=== PATIENT | male | born 1970 | race American Indian/Alaskan Native ===

== ENCOUNTER → 2024-09-15 | Outpatient (CLI) | payer OTHER, MEDICAID, SELFPAY ==
--- NOTE | 2024-09-15 | XR_ITS ---
Examination: Left knee single view TECHNIQUE: AP standing left knee single view Exam date and time: September 15, 2024 0755 hours INDICATIONS: Preop knee surgery September 28, 2024 FINDINGS: Advanced narrowing medial joint space left knee Significant osteoarthritis lateral joint space Prominent osteopenia No fracture IMPRESSION: Advanced narrowing medial joint space left knee Significant osteoarthritis lateral joint space left knee
== END | disposition home or self-care (01) ==
PROVIDERS: Referring Provider Orthopaedic Surgery; Visit Provider Orthopaedic Surgery
DX: M17.12 Unilateral primary osteoarthritis, left knee (principal); M25.862 Other specified joint disorders, left knee
CPT/HCPCS: 73560

== ENCOUNTER 2024-09-29 18:25 | Inpatient (IN) | payer OTHER, MEDICAID, SELFPAY ==
--- NOTE | 2024-09-28 09:57 | EKG_ITS ---
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
[2024-09-28 10:06] VITALS: BMI 37.2
[2024-09-28 10:57] LABS: Basophils # (Auto) 0.1 Thou/mm3 (0.0-0.2); Basophils % (Auto) 1 % (0-2.5); Eosinophils # (Auto) 0.1 Thou/mm3 (0.0-0.5); Eosinophils % (Auto) 2 % (0-10); Hematocrit 45.3 % (41.0-53.0); Hemoglobin 15.9 g/dL (13.5-16.0); Immature Granulocytes % (Auto) 0 % (0-0); Immature Granulocytes Auto 0.01 Thou/mm3 (0.00-0.00); Lymphocytes # (Auto) 2.4 Thou/mm3 (1.0-4.8); Lymphocytes % (Auto) 37 % (10-50); Mean Corpuscular HGB Conc 35.1 g/dl (31.0-37.0); Mean Corpuscular Hemoglobin 31.4 pg (25.0-35.0); Mean Corpuscular Volume 89 fL (80-100); Monocytes # (Auto) 0.5 Thou/mm3 (0.0-0.8); Monocytes % (Auto) 7 % (0-12); Neutrophils # (Auto) 3.5 Thou/mm3 (1.8-7.7); Neutrophils % (Auto) 53 % (37-80); Nucleated Red Blood Cell % 0 /100 WBC (0); Platelet Count 262 Thou/mm3 (140-440); RDW Standard Deviation 39.7 fL (35.1-43.9); Red Blood Count 5.07 Miln/mm3 (4.50-5.90); White Blood Count 6.6 Thou/mm3 (3.8-10.6)
[2024-09-28 11:14] LABS: Alanine Aminotransferase 20 U/L (10-49); Albumin, Serum 4.6 gm/dL (3.5-5.0); Albumin/Globulin Ratio 1.4 (1.2-2.2); Alkaline Phosphatase 104 U/L (46-116); Anion Gap 7 (7-16); Aspartate Amino Transferase 28 U/L (0-34); BUN/Creatinine Ratio 15 Ratio (12-20); Bilirubin,Total 1.2 mg/dL (0.3-1.2); Blood Urea Nitrogen 16 mg/dL (9-23); Calcium 9.4 mg/dL (8.3-10.6); Calcium (Corrected) 9.4 mg/dL (8.5-10.1); Carbon Dioxide 27.8 mMol/L (20.0-31.0); Chloride 103 mMol/L (98-107); Creatinine (Component) 1.1 mg/dL (0.6-1.3); Estimated Creatinine Clearance 96.9 mL/min (>60); Globulin 3.2 gm/dL (2.3-3.5); Glucose 90 mg/dL (74-106); Osmolality,Calculated 276 (275-295); Potassium 4.3 mMol/L (3.4-5.1); Sodium 138 mMol/L (136-145); Total Protein 7.8 gm/dL (5.7-8.2); eGFR > 60 See Note
[2024-09-28 11:15] LABS: Partial Thromboplastin Time 26.6 Seconds (22.0-36.0); Prothrombin Time 10.7 Seconds (9.0-12.2)
--- NOTE | 2024-09-28 14:21 | SUR.PREOP ---
Cardiac records and history reviewed with Dr Barksdale.
[2024-09-29] VITALS (25 sets, daily range): BP systolic 101–149; BP diastolic 70–101; PULSE 67–96; RESP 12–20; TEMP 36.1–37.2; O2SAT 94–100; BMI 37.2
[2024-09-29] MEDS: RINGERS LACTATED 1000 ML 1,000 ML 20 ML IV (06:46)
--- NOTE | 2024-09-29 07:28 | CHAP ---
Patient expressed gratitude for prayer before their procedure.
--- NOTE | 2024-09-29 10:42 | XR_ITS ---
Examination: Knee, left , 3 views Technique: Knee AP, lateral, oblique 3 views Date and time of exam: September 29, 2024 1137 hours INDICATIONS: Postop knee arthroplasty today. FINDINGS: Mild osteopenia Total left knee arthroplasty. Satisfactory alignment. No fracture IMPRESSION: Total left knee arthroplasty with satisfactory alignment
--- NOTE | 2024-09-29 10:43 | PD.SUROPNT ---
Date of Procedure 09/29/24 Pre Op Diagnosis Severe DJD left knee joint Post Op Diagnosis Same Procedure Left total knee replacement Renee persona implant. Femur size 10 narrow Tibial baseplate size E Polyethylene 11 mm Patella size 29 mm Findings Patient has severe osteoarthritic changes. The articular golf layers were absent on the medial compartment. There is significant osteophytes present. There is genu varum deformity as well. Procedure Description The patient was given a [general knee block was also given.] anesthesia. Once satisfactory anesthesia was achieved a tourniquet was placed on upper thigh. Intravenous antibiotics was given at the time of anesthesia. The patient was thoroughly prepped and draped. After using Esmarch the tourniquet pressure was raised to 350 mmHg. A skin incision was made 2 inches proximal to the upper pole of patella going as far down as up to the medial aspect of the tibial tuberosity. The skin was raised as a flap on the site. The bleeding vessels were electrocoagulated as and when encountered. The quadriceps tendon, medial border of the patella and the patellar tendon along the medial aspect of the tibial tuberosity was incised and reflected. The patellar tendon was reflected as much as needed to jeffrey the patella. The soft tissue from the upper medial border of the tibia was reflected to correct her genu varum deformity. The knee joint was flexed. The anterior cruciate ligament, medial and lateral meniscus were excised. Next para drill hole was made to the inferior surface of the femur. Following that a swab was placed. A 4?? of abduction was already put into it. Following that a cutting block for the inferior cut of the femur was placed and nicely secured with the pins. The Sward was removed. The inferior cut of the femur was made and after that the cutting block was removed. Following that a sizer was placed. A decision was made to use size [10] femur implant. 2 drill holes each in 3?? of external rotation were made. The sizer was removed. Size [10] cutting block was placed. Following that anterior, posterior, anterior chamfer and posterior chamfer cuts were made. The cutting block was removed. The knee joint was extended and a 10 mm trial plastic was removed and the intended level of the tibial cut was marked. The knee joint was flexed. With the help of double-pronged the tibia was displaced anteriorly. An extramedullary jig for the cutting block placement of the tibia was placed. The mechanical axis of the zig was parallel to the mechanical axis of the tibia. Following that the tibial cutting block was placed at the desired level and was secured nicely with the help of pins. Following that the tibial cut was made. In this case was posterior cruciate ligament was saved. The cutting block was removed. The spacer was placed and a decision was made to use size [11] polyethylene. The sizing of the tibial baseplate was done and the decision was made to use size [E] tibial baseplate. Following that size [10] trial femur implant was placed in lateralized position and size [E] tibial tibial baseplate along with size [11] plastic was placed in knee joint was flexed and extended quite a few times and tibial baseplate was allowed to sit wherever it wanted to. The markings were made for the tibial baseplate. 2 drill holes were made for the inferior surface of the femur trial implant. The trial implant was removed and tibial baseplate was placed again with the help of pins. The collar was placed and superior hole was drilled. Following that a fin cut was made. The patella was reamed with [29] mm diameter reamer. [12] mm thickness was left. A collar was placed and 3 drill holes were made. All the trial implant was placed and patellar tracking was checked and found to be good. The wound was irrigated with antibiotic solution every 4-5 minutes. Now the power lavage antibiotic solution was used. The knee joint was flexed. The bone were made dry. The cement was mixed. With the help of cement the tibial baseplate was mounted. The excess cement was removed. The femur implant was placed and trial plastic was placed and knee joint was extended. Patella was also mounted with the help of cementing. Excess cement was removed. Osteophytes from the patella was removed at this time. Once the cement was set the tourniquet pressure was released. The bleeding vessels were electrocoagulated. The trial plastic was removed and 11 mm ultra high molecular weight polyethylene was placed. Closure The quadriceps tendon, medial border of the patella and patellar tendon was closed with the help of 1-0 strata fix in continuous fashion. The subcutaneous tissue was closed with 2-0 Vicryl's strata fix in continuous fashion. Continue subcu cuticular stitches was done The wound was cleaned with hydrogen proximal solution and a sterile dressing was applied. Patient tolerated procedure very well. Estimated blood loss [50] mL. Prognosis in this case is good. This was taken to the recovery room in good condition. Anesthesia GETA and other Pathology / specimen None Estimated Blood Loss 50 Surgeon Rayray Quan MD Surgical Staff Operation Date: 09/29/24 07:30 Case Staff Anesthesiologist: Colby Barksdale RNmissing persons investigator: Shital Kirkpatrick
--- NOTE | 2024-09-29 10:50 | SUR.PHASEI ---
1050 Patient arrived to recovery resting comfortably in bed, on oxygen 6L via oxy mask, breathing unlabored, vital signs stable, denies pain, dressing intact to left leg; sutures, prineo, fluffs, bias roll, silk tape, no bleeding noted, bilateral dorsalis pedis pulses present when palpated, patient has good circulation to left lower extremity; skin color is normal for patient and warm to touch, report received from Reji LOPEZ and Dr. Barksdale
[2024-09-29] MEDS: MEPERIDINE INJ 50 MG/ML VIAL 12.5 MG IV (11:02)
--- NOTE | 2024-09-29 11:15 | SUR.PHASEI ---
1058 Patient shivering, warming measures in place, will medicate patient per anesthesia order for the shivering 1102 Patient medicated per MD order for shivering 1115 Medication effective shivering ceased, will monitor patient
--- NOTE | 2024-09-29 11:30 | SUR.PHASEII ---
1130 patients at bedside with patient
--- NOTE | 2024-09-29 11:44 | SUR.PHASEII ---
1144 XRAY complete per MD order
--- NOTE | 2024-09-29 11:53 | SUR.PHASEII ---
patient sitting up in bed drinking tea, has lunch tray
--- NOTE | 2024-09-29 12:20 | SUR.PHASEII ---
report received from Mary Yoo Rn. pt asleep but responds to voice, breathing unlabored on room air. v/s stable.
--- NOTE | 2024-09-29 12:20 | SUR.PHASEII ---
1220 Report given to Janusz LOPEZ
--- NOTE | 2024-09-29 12:55 | SUR.PHASEII ---
1255 Report received from Janusz LOPEZ
--- NOTE | 2024-09-29 13:04 | SUR.PHASEII ---
1304 patient sleeping comfortably in bed, oxygen applied as patient resting comfortably in bed
--- NOTE | 2024-09-29 15:41 | PD.ANESPROG ---
Documentation for date of: 09/29/24 ANESTHESIA NOTE: Patient had GETA and L femoral nerve block for L TKA this morning. He did well intra-op. He has h/o A fib, and takes Eliquis. Will defer further management to primary/surgeon team; recommend resuming his beta lauren and anticoagulation post op unless contraindicated. Colby Barksdale MD Anesthesia Progress Note Progress Note Most recent Vital Signs: Last Vital Signs Temp 98.5 F 09/29/24 11:20 Pulse 93 09/29/24 12:50 Resp 20 09/29/24 12:50 BP 108/80 09/29/24 12:50 Pulse Ox 95 09/29/24 12:50 O2 Flow Rate 3 09/29/24 11:20
[2024-09-29] MEDS: ceFAZolin/D5W 1 GM IVPB 1 GM/50 ML BAG IV ×2 (16:47→23:34)
--- NOTE | 2024-09-29 17:50 | SUR.PHASEII ---
patient sitting up eating dinner, at bedside
--- NOTE | 2024-09-29 18:10 | SUR.PHASEII ---
1807 Report given to Bushra LOPEZ, patient meets discharge criteria from recovery, awake and alert, breathing unlabored, vital signs stabled, denies pain, dressing intact; no bleeding noted, denies nausea, patient at bedside with patient 181 Patient transported via bed to room 379 without incident, Bushra LOPEZ promptly in patients room, patient awake and sitting up in bed with call light in reach when this race and sports book writer left patients room
--- NOTE | 2024-09-29 18:36 | PC.NURSE ---
Pt. received on Nurse Mary schuster the report prior arrival, PT. on room air 97%, not complaining of pain at this moment, dressing site dry, clean and intact. sensation present in all extremety. Girlfriend on bedside. Has a dinner in OR . Will make pt. comfortable and continue monitor.
[2024-09-29] MEDS: MORPHINE SULF INJ 10 MG/ML VIAL 4 MG IV (21:32)
[2024-09-30] VITALS (8 sets, daily range): BP systolic 103–152; BP diastolic 73–109; PULSE 70–123; RESP 17–93; TEMP 36.9–37.7; O2SAT 93–98
[2024-09-30 05:28] LABS: Basophils % (Auto) 0 % (0-2.5); Eosinophils % (Auto) 0 % (0-10); Hematocrit 40.5 % (41.0-53.0); Hemoglobin 14.1 g/dL (13.5-16.0); Immature Granulocytes % (Auto) 0 % (0-0); Immature Granulocytes Auto 0.06 Thou/mm3 (0.00-0.00); Lymphocytes # (Auto) 1.5 Thou/mm3 (1.0-4.8); Lymphocytes % (Auto) 10 % (10-50); Mean Corpuscular HGB Conc 34.8 g/dl (31.0-37.0); Mean Corpuscular Volume 89 fL (80-100); Monocytes # (Auto) 1.2 Thou/mm3 (0.0-0.8); Monocytes % (Auto) 8 % (0-12); Neutrophils # (Auto) 11.6 Thou/mm3 (1.8-7.7); Neutrophils % (Auto) 81 % (37-80); Nucleated Red Blood Cell % 0 /100 WBC (0); Platelet Count 221 Thou/mm3 (140-440); RDW Standard Deviation 39.8 fL (35.1-43.9); Red Blood Count 4.55 Miln/mm3 (4.50-5.90); White Blood Count 14.4 Thou/mm3 (3.8-10.6)
[2024-09-30] MEDS: MORPHINE SULF INJ 10 MG/ML VIAL 4 MG IV ×4 (07:59→23:56)
--- NOTE | 2024-09-30 19:42 | PD.RESCONSUL ---
HPI Data of Consult Requesting Physician: Rayray Quan MD Admitting Provider: Rayray Quan MD Attending Provider: Rayray Quan MD Primary Care Provider: Viral Cain PA-C Consult Narrative History of present illness: Patient is a 54-year-old male with past medical history of afib on Eliquis, hypertension, and hyperthyroidism who underwent left total knee replacement with Dr. Belcher on 09/29/2024. Patient is post-op Day 1. Patient reports 8/10 pain in the left knee. Otherwise denies chest pain, palpitations, shortness of breath, nausea, vomiting, abdominal pain, or diarrhea. Patient takes 3 home medications, verified at bedside with medication bottles: Eliquis 5 mg BID, metoprolol succinate 50 mg qday, and methimazole 20 mg qday. Hospitalist team was consulted for management of chronic conditions and resuming of home medications. Review of Systems Review of systems otherwise negative except what is mentioned above. cc:: cc: Rayray Quan MD Past Medical History Past Medical History Comments PMH COMMENT: Past Medical History: Afib on Eliquis, hypertension, and hyperthyroidism Family History: Diabetes in grandmother Surgical History: Left total knee replacement 09/29/2024, appendectomy Social History: Denies history of smoking, past alcohol use quit 8 years ago, denies recreational drug use, quit marijuana 2 years ago Current Medications: Eliquis 5 mg BID, metoprolol succinate 50 mg qday, and methimazole 20 mg qday (Source: Patient medication bottles) Allergies: No known drug allergies Exam Vital Signs Temp Pulse Resp BP Pulse Ox O2 Del Method O2 Flow Rate 99.8 F 70 17 103/79 95 Room Air 3 09/30/24 16:00 09/30/24 16:00 09/30/24 16:09/30/24 16:09/30/24 16:09/30/24 16:09/29/24 14:50 Narrative Exam Physical Exam General: Awake and in no acute distress. Conversational and non-toxic appearing. HEENT: Normocephalic, atraumatic, mucous membranes moist. Heart: Irregular rate and rhythm, no murmurs. Lungs: Clear to auscultation with no wheezing or crackles. Abdomen: Soft, nondistended, nontender, positive bowel sounds. ?No guarding or rebound tenderness. Neurologic: Alert and oriented x3, no gross neurological deficit, and patient able to move all 4 extremities. Extremities: Raised bilateral lower extremities, no edema. Left knee wrapped with dressings. Skin: No rash or ecchymoses. Results Labs 09/30/24 04:28 09/28/24 10:27 Labs: Short CBC 09/30/24 Range/Units 04:28 WBC 14.4 H D (3.8-10.6) Thou/mm3 Hgb 14.1 (13.5-16.0) g/dL Hct 40.5 L (41.0-53.0) % Plt Count 221 D (140-440) Thou/mm3 Quality Measures Quality Measures VTE prophylaxis Medications Home Medications and Allergies Home Medications ?Medication ?Instructions ?Recorded ?Confirmed ?Type apixaban 5 mg tablet (Eliquis) 5 mg PO BID 01/13/24 09/28/24 History methimazole 10 mg tablet 20 mg PO DAILY 01/13/24 09/29/24 History metoprolol succinate 50 mg 50 mg PO QDAY 09/28/24 09/29/24 History tablet,extended release 24 hr Allergies Allergy/AdvReac Type Severity Reaction Status Date / Time No Known Allergies Allergy Verified 09/29/24 06:28 Visit Medications Aspirin (Aspirin Ec 81 Mg Tabec) 81 mg PO BID DENZEL Stop: 10/30/24 20:59 Meperidine HCl (Meperidine Inj 50 Mg/Ml Vial) 12.5 mg IV Q5M PRN PRN Reason: SHIVERING Stop: 10/04/24 10:09 Last Admin: 09/29/24 11:02 Dose: 12.5 mg Metoprolol Tartrate (Metoprolol Tartrate Inj 1 Mg/Ml Amp 5 Ml) 1 mg IVP Q5MIN PRN PRN Reason: TACHYCARDIA Morphine Sulfate (Morphine Sulf Inj 10 Mg/Ml Vial) 4 mg IV Q4HR PRN PRN Reason: PAIN Stop: 10/04/24 18:24 Last Admin: 09/30/24 14:51 Dose: 4 mg Ondansetron HCl (Ondansetron Inj 2 Mg/Ml Inj 2 Ml) 4 mg IV Q6HR PRN PRN Reason: NAUSEA OR VOMITING Stop: 10/29/24 18:24 Discontinued Medications Fentanyl Citrate (Fentanyl Cit Inj 50 Mcg/Ml Amp 2ml) 50 mcg IV Q5MIN PRN PRN Reason: PAIN SCALE 4-10(Mod-Sev Stop: 09/29/24 12:11 Hydralazine HCl (Hydralazine Inj 20 Mg/Ml Vial) 5 mg IV Q20MIN PRN PRN Reason: SEE COMMENTS Stop: 09/29/24 12:11 Hydromorphone HCl (Hydromorphone Inj 2 Mg/Ml Vial) 0.5 mg IV Q10MIN PRN PRN Reason: PAIN SCALE 4-10(Mod-Sev Stop: 09/29/24 12:11 Cefazolin Sodium (Ancef 2gm Ivpb) 2 gm in 100 mls @ 100 mls/hr IV X1 ONE Stop: 09/29/24 06:59 Last Admin: 09/29/24 16:50 Dose: Not Given Lactated Ringer's (Lactated Ringers) 1,000 mls @ 20 mls/hr IV .Q24H ONE Stop: 09/30/24 05:59 Last Admin: 09/29/24 06:46 Dose: 20 mls/hr Cefazolin Sodium/Dextrose (Ancef Ivpb) 1 gm in 50 mls @ 50 mls/hr IV Q8H [facility] Stop: 09/29/24 20:33 Last Infusion: 09/29/24 17:47 Dose: Infused Cefazolin Sodium/Dextrose (Ancef Ivpb) 1 gm in 50 mls @ 50 mls/hr IV Q8H DENZEL Stop: 09/30/24 00:59 Last Admin: 09/29/24 23:34 Dose: 50 mls/hr Metoclopramide HCl (Metoclopramide Inj 5 Mg/Ml Vial 2 Ml) 10 mg IVP X1 PRN; Protocol PRN Reason: NAUSEA OR VOMITING Stop: 09/29/24 12:11 Midazolam HCl (Midazolam Inj 1 Mg/Ml Vial 2 Ml) 1 mg IV Q5MIN PRN PRN Reason: ANXIETY Stop: 09/30/24 10:09 Ondansetron HCl (Ondansetron Inj 2 Mg/Ml Inj 2 Ml) 4 mg IV X1 PRN PRN Reason: NAUSEA OR VOMITING Stop: 09/29/24 12:11 Assessment & Plan Plan 54-year-old male with past medical history of afib on Eliquis, hypertension, and hyperthyroidism who underwent left total knee replacement with Dr. Belcher on 09/29/2024. Patient is post-op Day 1. Patient reports 8/10 pain in the left knee #Atrial fibrillation, rate controlled EKG on admission showed afib with rate of 79. Patient has maintained rate control in the 70-80s. -Continue home Eliquis 5 mg BID -Continue home metoprolol succinate 50 mg qday -Keep K >4.0, Mag >2.0 #History of hyperthyroidism Last TSH <0.01, Free T4 1.49 in 12/2024. -Continue methimazole 20 mg qday -Check TSH level #History of hypertension Patient has maintained normal BPs. -Continue home metoprolol succinate 50 mg qday #s/p total left knee replacement -Continue management per Ortho Patient plan of care was discussed with the attending physician, Dr. Esparza. Beatris Ojeda, PGY-2 Attending Provider Attestation/Addendum I have examined the patient, reviewed labs and imaging findings, discussed the case with the resident(s), and reviewed entered orders. I agree with the plan of care as outlined in this note, with these additional summaries/recommendations: Patient is a 54-year-old male with a medical history of osteoarthritis, chronic atrial fibrillation on Eliquis, hypothyroidism, primary hypertension, and vitamin D deficiency who was admitted to the hospital by orthopedics for left knee replacement. Hospitalist team consulted for chronic disease management. Home medications: Eliquis 5 mg p.o. twice daily, metoprolol succinate 50 mg daily, methimazole 20 mg p.o. daily Patient is POD #1 status post total left knee replacement for severe degenerative joint disease. Continue pain management with morphine. Labs reviewed. Mild leukocytosis present which is most likely reactive. Continue home methimazole 20 mg p.o. daily for hyperthyroidism. Continue home metoprolol succinate XL 50 mg p.o. daily for history of atrial fibrillation. Patient receiving aspirin 81 mg p.o. twice daily for DVT prophylaxis which we will continue and discuss transitioning to patient's home oral Eliquis in a.m. if cleared by orthopedics. Repeat hematology and chemistry panel in AM. Thank you for allowing us to participate in this patient's care. We will continue to follow the patient with you. Dr. Esparza
[2024-09-30] MEDS: METOPROLOL SUCCINATE XL 25 MG TABCR 50 MG PO (20:52)
[2024-09-30] MEDS: ASPIRIN EC 81 MG TABEC PO (20:52)
[2024-09-30] MEDS: METHIMAZOLE 5 MG TABLET 20 MG PO (20:52)
[2024-09-30] MEDS: APIXABAN 2.5 MG TABLET 5 MG PO (20:52)
[2024-10-01] VITALS (7 sets, daily range): BP systolic 114–139; BP diastolic 87–106; PULSE 75–105; RESP 17–96; TEMP 36.1–37.2; O2SAT 93–96
[2024-10-01] MEDS: HYDROcodone/APAP 5/325 TABLET 1 TAB PO ×4 (02:28→15:12)
[2024-10-01] MEDS: MORPHINE SULF INJ 10 MG/ML VIAL 2 MG IV ×3 (04:18→13:37)
[2024-10-01 05:30] LABS: Basophils % (Auto) 0 % (0-2.5); Eosinophils % (Auto) 0 % (0-10); Hemoglobin 13.5 g/dL (13.5-16.0); Immature Granulocytes % (Auto) 1 % (0-0); Immature Granulocytes Auto 0.06 Thou/mm3 (0.00-0.00); Lymphocytes # (Auto) 1.9 Thou/mm3 (1.0-4.8); Lymphocytes % (Auto) 16 % (10-50); Mean Corpuscular HGB Conc 34.6 g/dl (31.0-37.0); Mean Corpuscular Hemoglobin 30.5 pg (25.0-35.0); Mean Corpuscular Volume 88 fL (80-100); Monocytes # (Auto) 1.4 Thou/mm3 (0.0-0.8); Monocytes % (Auto) 12 % (0-12); Neutrophils # (Auto) 8.5 Thou/mm3 (1.8-7.7); Neutrophils % (Auto) 71 % (37-80); Nucleated Red Blood Cell % 0 /100 WBC (0); Platelet Count 174 Thou/mm3 (140-440); RDW Standard Deviation 38.3 fL (35.1-43.9); Red Blood Count 4.42 Miln/mm3 (4.50-5.90)
[2024-10-01 06:20] LABS: Anion Gap 7 (7-16); BUN/Creatinine Ratio 14 Ratio (12-20); Blood Urea Nitrogen 15 mg/dL (9-23); Calcium 8.8 mg/dL (8.3-10.6); Carbon Dioxide 27.6 mMol/L (20.0-31.0); Chloride 97 mMol/L (98-107); Creatinine (Component) 1.1 mg/dL (0.6-1.3); Estimated Creatinine Clearance 96.8 mL/min (>60); Glucose 118 mg/dL (74-106); Magnesium 1.8 mg/dL (1.6-2.6); Osmolality,Calculated 266 (275-295); Phosphorous 3.1 mg/dL (2.4-5.1); Sodium 132 mMol/L (136-145); Thyroid Stimulating Hormone 7.22 uIU/mL (0.55-4.78); eGFR > 60 See Note
[2024-10-01] MEDS: APIXABAN 2.5 MG TABLET 5 MG PO (09:17)
[2024-10-01] MEDS: METOPROLOL SUCCINATE XL 25 MG TABCR 50 MG PO (09:18)
[2024-10-01] MEDS: METHIMAZOLE 5 MG TABLET 20 MG PO (09:18)
[2024-10-01 09:19] LABS: Free T4 (Free Thyroxine) 1.14 ng/dL (0.89-1.76)
[2024-10-01] MEDS: SENNA TABLET 1 TAB PO (09:27)
[2024-10-01] MEDS: POLYETHYLENE GLYCOL 17 GM PACKET PO (09:27)
--- NOTE | 2024-10-01 11:23 | PD.RESPRO ---
Documentation for date of: 10/01/24 Subjective Subjective Interval history: This Patient is a 54-year-old male with past medical history of afib on Eliquis, hypertension, and hyperthyroidism who underwent left total knee replacement with Dr. Belcher on 09/29/2024. Patient is post-op Day 1. Patient reports 8/10 pain in the left knee. Otherwise denies chest pain, palpitations, shortness of breath, nausea, vomiting, abdominal pain, or diarrhea. Patient takes 3 home medications, verified at bedside with medication bottles: Eliquis 5 mg BID, metoprolol succinate 50 mg qday, and methimazole 20 mg qday. 10/01/2024 patient was seen and examined at the bedside this morning. Patient reported that he did not have a bowel movement this morning and has been eating and tolerating his diet well. Patient did had pain tolerable after the total left knee replacement. PT recommended outpatient PT referral upon discharge. Vitals were stable this morning as night residents resume patient's home medications. Dr Quan was consulted as patient was on aspirin and was taking Eliquis at home and I recommended to continue Eliquis 5 twice daily for DVT prophylaxis after hip fracture and DC aspirin. We recommend to continue patient's metoprolol succinate 50 mg once daily for A-fib control and blood pressure. Continue pain management as tolerated. Patient would benefit with MiraLAX and senna as outpatient for constipation. Patient can be discharged from medical standpoint. Will sign off the case as patient blood pressure has improved. All labs and orders were reviewed. Exam Vital Signs Temp Pulse Resp BP Pulse Ox O2 Del Method O2 Flow Rate 97.3 F 105 H 24 H 119/87 H 96 Room Air 3 10/01/24 08:00 10/01/24 09:18 10/01/24 08:26 10/01/24 09:18 10/01/24 08:00 10/01/24 08:00 09/29/24 14:50 Narrative Exam Physical Exam General: Awake and in no acute distress. Conversational and non-toxic appearing. HEENT: Normocephalic, atraumatic, mucous membranes moist. Heart: Irregular rate and rhythm, no murmurs. Lungs: Clear to auscultation with no wheezing or crackles. Abdomen: Soft, nondistended, nontender, positive bowel sounds. ?No guarding or rebound tenderness. Neurologic: Alert and oriented x3, no gross neurological deficit, and patient able to move all 4 extremities. Extremities: Raised bilateral lower extremities, no edema. Left knee wrapped with dressings. Skin: No rash or ecchymoses. Objective Labs 10/01/24 04:23 10/01/24 04:23 Labs: Laboratory Results - last 24 hr 09/28/24 10/01/24 10:27 04:23 WBC 12.0 H RBC 4.42 L Hgb 13.5 Hct 39.0 L MCV 88 MCH 30.5 MCHC 34.6 RDW Std Deviation 38.3 Plt Count 174 D Neut % (Auto) 71 Lymph % (Auto) 16 Republic % (Auto) 12 Eos % (Auto) 0 Baso % (Auto) 0 Neut # (Auto) 8.5 H Lymph # (Auto) 1.9 Republic # (Auto) 1.4 H Eos # (Auto) 0.0 Baso # (Auto) 0.0 Immature Gran # (Auto) 0.06 H Absolute Nucleated RBC 0.00 Immature Gran % 1 H Nucleated RBC % 0 Sodium 132 L Potassium 4.0 Chloride 97 L Carbon Dioxide 27.6 Anion Gap 7 BUN 15 Creatinine 1.1 Estim Creat Clear Calc 96.8 eGFR > 60 BUN/Creatinine Ratio 14 Glucose 118 H Calculated Osmolality 266 L Calcium 8.8 Phosphorus 3.1 Magnesium 1.8 TSH 7.22 H Free T4 1.14 Crossmatch See Detail Quality Measures Quality Measures VTE prophylaxis (Eliquis 5 mg twice daily) Assessment & Plan Assessment Current Active Medications: Generic Name Dose Route Start Last Admin Trade Name Samia PRN Reason Stop Dose Admin Acetaminophen 650 mg 10/01/24 02:21 Acetaminophen 325 Mg Tablet PO 10/31/24 02:11 Q4H PRN Fever >100.4 or Pain 1-3 Hydrocodone Bitart/Acetaminophen 1 tab 10/01/24 02:20 10/01/24 11:12 Hydrocodone/Apap 5/325 Tablet PO 10/06/24 02:00 1 tab Q4H PRN Administration PAIN SCALE 4-6 (Moderate Apixaban 5 mg 10/01/24 09:00 10/01/24 09:17 Apixaban 2.5 Mg Tablet PO 10/31/24 08:59 5 mg BID DENZEL Administration Meperidine HCl 12.5 mg 09/29/24 10:10 09/29/24 11:02 Meperidine Inj 50 Mg/Ml Vial IV 10/04/24 10:09 12.5 mg Q5M PRN Administration SHIVERING Methimazole 20 mg 09/30/24 20:30 10/01/24 09:18 Methimazole 5 Mg Tablet PO 10/30/24 20:29 20 mg DAILY DENZEL Administration Metoprolol Succinate 50 mg 09/30/24 20:30 10/01/24 09:18 Metoprolol Succinate Xl 25 Mg Tabcr PO 10/30/24 20:29 50 mg QDAY DENZEL Administration Metoprolol Tartrate 1 mg 09/29/24 10:11 Metoprolol Tartrate Inj 1 Mg/Ml Amp 5 Ml IVP Q5MIN PRN TACHYCARDIA Morphine Sulfate 2 mg 10/01/24 02:12 10/01/24 09:18 Morphine Sulf Inj 10 Mg/Ml Vial IV 10/04/24 18:24 2 mg Q4H PRN Administration PAIN SCALE 7-10 (Severe Ondansetron HCl 4 mg 09/29/24 18:25 Ondansetron Inj 2 Mg/Ml Inj 2 Ml IV 10/29/24 18:24 Q6HR PRN NAUSEA OR VOMITING Polyethylene Glycol 17 gm 10/01/24 09:30 10/01/24 09:27 Polyethylene Glycol 17 Gm Packet PO 10/31/24 09:29 17 gm QDAY DENZEL Administration Sennosides 1 tab 10/01/24 09:21 Senna Tablet PO 10/31/24 09:20 QDAY PRN CONSTIPATION Protocol Plan This 54-year-old male with past medical history of afib on Eliquis, hypertension, and hyperthyroidism who underwent left total knee replacement with Dr. Belcher on 09/29/2024. Patient is post-op Day 1. Patient reports 8/10 pain in the left knee. Medical team was consulted for high blood pressure. Blood pressure is stable now and can be discharged from medical standpoint. #Atrial fibrillation, rate controlled EKG on admission showed afib with rate of 79. Patient has maintained rate control in the 70-80s. -Continue home Eliquis 5 mg BID -Continue home metoprolol succinate 50 mg qday -Keep K >4.0, Mag >2.0 #History of hyperthyroidism Last TSH <0.01, Free T4 1.49 in 12/2024. -Continue methimazole 20 mg qday -Check TSH level #History of hypertension Patient has maintained normal BPs. -Continue home metoprolol succinate 50 mg qday #s/p total left knee replacement -Continue management per Ortho #Constipation -Continue MiraLAX and senna as needed Patient can be discharged from medical standpoint. We recommended to continue metoprolol succinate 50 mg once daily and Eliquis 5 mg twice daily and DC aspirin as patient is currently taking Eliquis for A-fib prevention and will benefit from post total left knee replacement. We will sign off the case as patient blood pressure has improved. Patient will be discharged to home and outpatient PT referral for PT evaluation. Patient was seen and discussed with attending physician, Dr.Bishwakarma Dr. Therese MD, PGY 2 Attending Provider Attestation/Addendum I attest that I was physically present for the evaluation, physical examination, lab and imaging review of the patient with the residents. I discussed the case with the residents and agree with the findings and plans of care as documented above. At bedside, patient appears comfortable. States that he continues to have some pain on the hip but controlled with analgesics. Blood pressure has been well-controlled along with the heart rate. Continues to be on metoprolol and Eliquis. Advised to continue taking metoprolol and Eliquis on discharge. Anny Blanton MD
--- NOTE | 2024-10-01 12:51 | PC.PT ---
PT Eval completed. Recommend FWW for home use and referral for outpatient PT upon DC.
== END 2024-10-01 18:20 | disposition home or self-care (01) | DRG 470 ==
LOC: S3SX 18:29
PROVIDERS: Anesthesiology; Student in an Organized Health Care Education/Training Program; Admitting Provider Orthopaedic Surgery; PCP Physician Assistant; Referring Provider Orthopaedic Surgery; Visit Provider Orthopaedic Surgery
PROC: 0SRD0J9 Replacement of Left Knee Joint with Synthetic Substitute, Cemented, Open Approach (ICD-10-PCS; principal; 2024-09-29 07:30)
DX: M17.12 Unilateral primary osteoarthritis, left knee (principal); I48.20 Chronic atrial fibrillation, unspecified; M25.762 Osteophyte, left knee; M21.162 Varus deformity, not elsewhere classified, left knee; E05.90 Thyrotoxicosis, unspecified without thyrotoxic crisis or storm; I10 Essential (primary) hypertension; K59.00 Constipation, unspecified; Z79.01 Long term (current) use of anticoagulants; Z79.899 Other long term (current) drug therapy
CPT/HCPCS: 36415; 73562; 80048; 80053; 83735; 84100; 84439; 84443; 85025; 85610; 85730; 86850; 86900; 86901; 86923; 87081; 93005; 97162; A4217; C1713; C1776; J0131; J0689; J0690; J1100; J1580; J2175; J2250; J2270; J2371; J2405; J2704; J2795; J3010; J3490; J7120; A9270; J1805

== ENCOUNTER → 2024-11-20 | Outpatient (CLI) | payer OTHER, MEDICAID, SELFPAY ==
--- NOTE | 2024-11-20 11:30 | XR_ITS ---
Examination: Thyroid sonography complete Technique: Grayscale sonographic images thyroid lobes, compatible analysis Exam date and time: 2024 1142 hrs. Indications: Diagnosis hypothyroidism this month Findings: Right thyroid 6.1 cm Midpole 15 x 16 mm nodule Lower pole by 12 mm nodule Left thyroid 4.3 cm Upper pole nodule 11 x 12 mm Midpole nodule 5 x 4 mm Lower pole nodule 7 x 4 mm Impression: Bilateral solid thyroid nodules Consider ultrasound-guided fine-needle aspiration of the 2 large right thyroid nodules
== END | disposition home or self-care (01) ==
LOC: CDIM 11:24
PROVIDERS: PCP Physician Assistant; Referring Provider Internal Medicine; Visit Provider Internal Medicine
DX: E04.2 Nontoxic multinodular goiter (principal)
CPT/HCPCS: 76536

== ENCOUNTER 2025-01-09 14:30 | Outpatient (RCR) | payer OTHER, MEDICAID, SELFPAY ==
--- NOTE | 2025-01-02 14:08 | PT.OIERPT ---
PT OP Initial Eval Patient Information Outpatient Physical Therapy Treatment Date: 01/02/25 Visit Reasons: LEFT KNEE REPLACEMENT Medical Diagnosis: M17.12 Treatment Dx #1: L knee decreased ROM Treatment Dx #2: L knee pain Start of Care: 01/02/25 Date of Onset: 09/29/24 DOS Smoking Status Smoking Status: Never smoker Initial Assessment Subjective: Pt is 54 yr old male s/p L TKA in September presents to therapy for the first time after surgery. He is limping and reports difficulty walking and straightening the LE. 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 He is putting most of his weight of the other LE which starts to hurt after about 10 minutes. PMH: thyroidism Pt goal: to walk in order to go back to work Objective: L knee AROM: Extension: -35 deg Flexion: 75 deg SLR: 50 deg Gait: antalgic with flexed knee, hopping steps Strength: Quads: 3+/5 HS: 4-/5 Assessment: Pt presentation consistent with post op L TKA with very limited ROM, strength ? and WB tolerance. Pt lacks 35 deg knee extension and flexion is limited by ? myofascial limitations and pain.? Pt requires skilled therapy to improve ROM ? and strength and has fair rehab potential. Pt would benefit from knee manipulation and dynasplint to improve ROM.? Eval followed by HEP with printout. Short Term and Jail Goals 1. Independent with HEP 2. Improved knee ROM to full extension to 100 deg flexion 3. Improved quad and hamstring strength to 4/5 4. Improved ambulatory tolerance to community distances with symmetrical ?? gait pattern in order to return to work.?? Treatment Plan ? 1. Manual therapy ? 2. Therex ? 3. Modalities as indicated, moist heat, ice, estim Frequency and Duration: 2x a week for 12 therapy sessions plus evaluation Certification Dates: 01/02/25 to 04/02/25 Procedure Charges OP PT Eval Mod Complex 30 minutes: Yes
--- NOTE | 2025-01-09 15:01 | PT.ODAYNRPT ---
PT Outpatient Daily Note OP Daily Note Outpatient Physical Therapy Treatment Date: 01/09/25 Visit Reasons: LEFT KNEE REPLACEMENT Subjective: Doing HEP to extend knee Objective: See F/S for therex MHP: x7' during LLPS Assessment: Ligamentous end-feel into extension Plan: Improve ROM L knee Length of Time (minutes) of Treatment: 30 Minutes Procedure Charges Therapeutic Exercise 30 minutes: Yes
== END 2025-01-10 23:59 | disposition home or self-care (01) ==
LOC: CPTX 14:30
PROVIDERS: PCP Physician Assistant; Referring Provider Physician Assistant; Visit Provider Physician Assistant
DX: M25.562 Pain in left knee (principal); R26.2 Difficulty in walking, not elsewhere classified; Z96.652 Presence of left artificial knee joint; M17.12 Unilateral primary osteoarthritis, left knee
CPT/HCPCS: 97110; 97162

== ENCOUNTER 2025-01-29 07:13 | Day surgery (SDC) | payer OTHER, MEDICAID, SELFPAY ==
[2025-01-25 15:07] VITALS: BMI 34.0
--- NOTE | 2025-01-26 13:44 | EKG_ITS ---
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
[2025-01-29] VITALS (16 sets, daily range): BP systolic 119–160; BP diastolic 83–104; PULSE 82–96; RESP 17–24; TEMP 36.8–36.9; O2SAT 95–100
[2025-01-29] MEDS: SODIUM CHLORIDE 0.9% 500 ML 500 ML 30 ML IV (08:40)
[2025-01-29] MEDS: fentaNYL CIT INJ 50 mCg/ML AMP 2ML 100 MCG IVP (08:45)
[2025-01-29] MEDS: MIDAZOLAM INJ 1 MG/ML VIAL 2 ML 5 MG IV (08:45)
--- NOTE | 2025-01-29 09:15 | PC.NURSE ---
0855 patient is sleepy and arousable, breathing unlabored, s/p cardioversion by Dr. Liang, report received from Abbie LOPEZ, patient to recover for 2 hours.
--- NOTE | 2025-01-29 11:02 | PC.NURSE ---
1058 patient is awake, alert, breathing unlabored, able to tolerate food tray with no nausea or vomiting, able to ambulate to bathroom and void, meets discharge criteria, discharge instructions given to patient and Ariana, patient discharged home in wheelchair with all belongings.
--- NOTE | 2025-01-31 12:58 | ESOP_ITS ---
RE: CORTES GROSSMAN : 1970 DATE OF OPERATION: 01/29/2025 PROCEDURE PERFORMED: 1. Synchronized cardioversion. 2. Conscious sedation for 30-minute duration. DIAGNOSIS: Atrial fibrillation, symptomatic. HISTORY AND INDICATIONS: The patient is a 54-year-old male with a past medical history of hypertension, atrial fibrillation, and hyperthyroidism _ atrial fibrillation symptomatic and synchronized cardioversion was recommended. DESCRIPTION OF PROCEDURE: The patient was brought to cardiac catheterization laboratory. He was given a total of 4 mg Versed and 100 mcg of fentanyl for conscious sedation. Synchronized cardioversion was performed, initially 100 joules of energy, subsequently 150 joules of energy and 200 joules of energy. After 3 attempts to cardiovert, the patient remains in atrial fibrillation, decided to keep the patient in atrial fibrillation with rate control. SUMMARY OF FINDINGS: Unsuccessful cardioversion, pre-procedural atrial fibrillation, post-procedural atrial fibrillation. COMPLICATIONS: None. Conscious sedation was given and the patient was observed for 2 more hours prior to discharge him home. DT: 12:34:11 TT: 12:51:00 Ref: [id number] - TID: [id number] MTDD
== END 2025-01-29 10:58 | disposition home or self-care (01) ==
PROVIDERS: PCP Physician Assistant; Referring Provider Internal Medicine Cardiovascular Disease; Visit Provider Internal Medicine Cardiovascular Disease
PROC: 5A2204Z Restoration of Cardiac Rhythm, Single (ICD-10-PCS; CPT 92960; principal; 2025-01-29 07:30)
DX: I48.91 Unspecified atrial fibrillation (principal); Z01.810 Encounter for preprocedural cardiovascular examination; I10 Essential (primary) hypertension; E03.9 Hypothyroidism, unspecified
CPT/HCPCS: 92960; 93005; J2250; J3010; J7040

== ENCOUNTER 2025-02-07 16:00 | Outpatient (RCR) | payer OTHER, MEDICAID, SELFPAY ==
--- NOTE | 2025-01-11 14:57 | PT.ODAYNRPT ---
PT Outpatient Daily Note OP Daily Note Outpatient Physical Therapy Treatment Date: 01/11/25 Visit Reasons: left knee surgery Subjective: Doing HEP to extend knee and walking without the cane Objective: See F/S for therex Assessment: Pt ambulates with flexed knee and decreased stance time on L. Plan: Improve ROM L knee Length of Time (minutes) of Treatment: 30 Minutes Procedure Charges Therapeutic Exercise 30 minutes: Yes
--- NOTE | 2025-01-19 15:08 | PT.ODAYNRPT ---
PT Outpatient Daily Note OP Daily Note Outpatient Physical Therapy Treatment Date: 01/19/25 Visit Reasons: left knee surgery Subjective: Pt c/o painful and stiff knee. Objective: Please sees flow sheet for ther ex list. Assessment: Pt highly guarded during PROM into knee flexion. Plan: Continue with pOC. Length of Time (minutes) of Treatment: 30 Minutes Procedure Charges Therapeutic Exercise 30 minutes: Yes
--- NOTE | 2025-01-23 16:25 | PT.ODAYNRPT ---
PT Outpatient Daily Note OP Daily Note Outpatient Physical Therapy Treatment Date: 01/23/25 Visit Reasons: left knee surgery Subjective: Doing HEP to extend knee and walking without the cane Objective: See F/S for therex Assessment: Pt ambulates with flexed knee and decreased stance time on L with hops to advance R LE. Plan: Improve ROM L knee Length of Time (minutes) of Treatment: 30 Minutes Procedure Charges Therapeutic Exercise 30 minutes: Yes
--- NOTE | 2025-01-25 15:41 | PT.ODAYNRPT ---
PT Outpatient Daily Note OP Daily Note Outpatient Physical Therapy Treatment Date: 01/25/25 Visit Reasons: left knee surgery Subjective: Pt reports knee continues to be stiff, mentioned he aslo has problems with his L ankle that he has been dealing with since before knee surgery. Objective: Please see flow sheet for ther ex list. Assessment: Pt tolerated LLPS into knee extension for increase time indicating progress. Plan: Continue with pOC. Length of Time (minutes) of Treatment: 30 Minutes Procedure Charges Therapeutic Exercise 30 minutes: Yes
--- NOTE | 2025-01-31 15:19 | PT.ODAYNRPT ---
PT Outpatient Daily Note OP Daily Note Outpatient Physical Therapy Treatment Date: 01/31/25 Visit Reasons: left knee surgery Subjective: Doing HEP to extend knee and walking without the cane Objective: See F/S for therex MT: PROM into extension with overpressure x5' Assessment: Pt ambulates with flexed knee and decreased stance time on L. Improved knee extension PROM since last visit to about -13 deg Plan: Improve ROM L knee Length of Time (minutes) of Treatment: 30 Minutes Procedure Charges Therapeutic Exercise 30 minutes: Yes
--- NOTE | 2025-02-02 14:32 | PT.ODAYNRPT ---
PT Outpatient Daily Note OP Daily Note Outpatient Physical Therapy Treatment Date: 02/02/25 Visit Reasons: left knee surgery Subjective: Pt reports L knee is really sore today and has more pain, has been walking ore than usual. Pt also shared that he has been having trouble sleeping. Objective: Please see flow sheet for ther ex list. Assessment: Regressed interventions to accommodate reported pain. Plan: Continue with POC. Length of Time (minutes) of Treatment: 30 Minutes Procedure Charges Therapeutic Exercise 30 minutes: Yes
--- NOTE | 2025-02-07 18:44 | PT.ODAYNRPT ---
PT Outpatient Daily Note OP Daily Note Outpatient Physical Therapy Treatment Date: 02/07/25 Visit Reasons: left knee surgery Subjective: Doing HEP to extend knee and walking without the cane Objective: See F/S for therex Assessment: Pt ambulates with flexed knee and decreased stance time on L. Improved knee extension PROM since last visit to about -13 deg Plan: Improve ROM L knee Length of Time (minutes) of Treatment: 30 Minutes Procedure Charges Therapeutic Exercise 30 minutes: Yes
== END 2025-02-10 23:59 | disposition home or self-care (01) ==
LOC: CPTX 16:00
PROVIDERS: PCP Physician Assistant; Referring Provider Physician Assistant; Visit Provider Physician Assistant
DX: M25.562 Pain in left knee (principal); Z96.652 Presence of left artificial knee joint; M17.12 Unilateral primary osteoarthritis, left knee; R26.2 Difficulty in walking, not elsewhere classified
CPT/HCPCS: 97110

== ENCOUNTER 2025-03-01 15:30 | Outpatient (RCR) | payer OTHER, MEDICAID, SELFPAY ==
--- NOTE | 2025-02-13 16:28 | PT.ODAYNRPT ---
PT Outpatient Daily Note OP Daily Note Outpatient Physical Therapy Treatment Date: 02/13/25 Visit Reasons: Left knee surgery Subjective: Pt c/o L knee pain and stiffness. Objective: Please see flow sheet for ther ex list. Assessment: Pt demonstrates antalgic gait, poor heel strike. Pt educated and instructed on heel toe pattern and to increase stance phase, pt able to improve gait with few repetitions. Plan: Continue working on normalizing gait and ROM. Length of Time (minutes) of Treatment: 30 Minutes Procedure Charges Therapeutic Exercise 30 minutes: Yes
--- NOTE | 2025-03-01 19:14 | PT.ODS1RPT ---
PT OP Progress/Discharge Note Date of Service: 03/01/25 Progress Note/DC Note Progress Note/Discharge Note: DC Note Patient Information Visit Reasons: Left knee surgery Service Continue Service or Discharge: Discharge Discharge Date: 03/01/25 Status Subjective: Overall better until recent setback when he fell and the knee bent back with more pain since then. He is returning to work on 03/13. Objective: L knee AROM: -15 deg extension Flexion: 90 deg Strength: Quads: 4-/5 HS: 4/5 Gait: flexed knee, decreased stance time on L LE, hops Assessment: Pt has attended 12/12 visits with slow progress with therapy goals. Pt has improved knee flexion ROM to 90 deg but is shy of goal of 100 deg and extension has improved to about -15 deg. Pt has improved quad strength to meet goal of 4/5. Gait pattern is limited by decreased WB tolerance and extension of L knee. Progress with goals has plateaued and he is not making progress with goals. He may benefit from ISAAC. Plan: D/C with HEP Procedure Charges Therapeutic Exercise 30 minutes: Yes
== END 2025-03-12 23:59 | disposition home or self-care (01) ==
LOC: CPTX 15:30
PROVIDERS: PCP Physician Assistant; Referring Provider Physician Assistant; Visit Provider Physician Assistant
DX: M25.562 Pain in left knee (principal); Z96.652 Presence of left artificial knee joint; M17.12 Unilateral primary osteoarthritis, left knee
CPT/HCPCS: 97110